=== PATIENT | male | born 2000 | race Caucasian/White ===

== ENCOUNTER 2019-12-05 13:46 | Emergency (ER) | payer OTHER ==
[~2019-12-05] VITALS: Ht 188 cm; Wt 56.2 kg
[2019-12-05 14:00] VITALS: BP 111/72
--- NOTE | 2019-12-05 14:16 | NUR ---
[employer]OUN[employer]: PT TO ROOM FROM LOBBY
[2019-12-05 14:35] LABS: BASOPHILS # (AUTO) 0.03 x10^3/uL (0-0.3); BASOPHILS % (AUTO) 1 % (0-1); EOSINOPHILS # (AUTO) 0.32 x10^3/uL (0-0.8); EOSINOPHILS % (AUTO) 6 % (1-7); LYMPHOCYTES # (AUTO) 1.94 x10^3/uL (1-6.1); LYMPHOCYTES % (AUTO) 36 % (22-44); MD NO; MEAN CORPUSCULAR HEMOGLOBIN 29.6 pg (27.5-34.5); MEAN CORPUSCULAR HGB CONC 32.8 g/dL (33.2-36.2); MEAN CORPUSCULAR VOLUME 90.2 fL (81-97); MEAN PLATELET VOLUME 7.5 fL (7.4-10.4); MONOCYTES % (AUTO) 11 % (2-9); NEUTROPHILS # (AUTO) 2.46 x10^3/uL (1.8-8.0); NEUTROPHILS % (AUTO) 46 % (42-75); PLATELET COUNT 220 x10^3/uL (130-400); RED BLOOD COUNT 5.15 x10^6/uL (4.38-5.82); RED CELL DISTRIBUTION WIDTH 12.8 % (9.4-14.8)
[2019-12-05 14:46] LABS: ALANINE AMINOTRANSFERASE 20 U/L (12-78); ALBUMIN 4.4 g/dL (3.4-5.0); ANION GAP 2 mmol/L (5-15); CALCIUM 8.9 mg/dL (8.5-10.1); CHLORIDE 108 mmol/L (98-107)
[2019-12-05 14:48] LABS: ALKALINE PHOSPHATASE 83 U/L (45-117); BILIRUBIN,TOTAL 1.7 mg/dL (0.2-1.0); TOTAL PROTEIN 7.5 g/dL (6.4-8.2)
--- NOTE | 2019-12-05 15:25 | NUR ---
break rn: pt resting comfortably in bed. mother at bedside. call light in reach. chel
--- NOTE | 2019-12-05 15:36 | NUR ---
in room for call light. pt states to this rn that when he got up to the restroom his stomach was upset. pt requesting vanilla ice cream. pt advised vanilla pudding is all we have available. pt agrees to try. made aware.
[2019-12-05 15:40] LABS: FREE T4 (FREE THYROXINE) 1.22 ng/dL (0.76-1.46)
== END 2019-12-05 15:55 | disposition home or self-care (01) ==
LOC: ED 15:49
DX: H66.002 Acute suppurative otitis media without spontaneous rupture of ear drum, left ear (principal); R06.00 Dyspnea, unspecified; R94.6 Abnormal results of thyroid function studies
CPT/HCPCS: 36415; 70360; 80053; 83690; 84439; 84443; 85025; 99284